=== PATIENT | female | born 1990 | race Caucasian/White ===

== ENCOUNTER 2020-01-02 09:33 | Outpatient (CLI) | payer OTHER ==
--- NOTE | 2020-01-02 11:40 | MRI ---
Exam: Brain MRI with and without contrast HISTORY: History of seizure COMPARISON: 04/30/2016, 01/01/2012 FINDINGS: Gradient echo sequence: No hemorrhage Calvarium: Appropriate T1 marrow signal intensity Midline brain parenchyma: Unremarkable Cerebrum:Redemonstration of multiple subependymal nodules. Stable T2 and FLAIR white matter hyperinte nsities. Stable pineal cyst. Currently, pineal cyst measures 0.7 x 0.6 cm, previously measuring 0.8 x 0.7 cm. Stable beata cisterna magna. There are no new intraparenchymal masses. Ventricles: Stable configuration the ventricular system. Sinuses and mastoid air cells: Adequate aeration Diffusion: Central arterial flow is maintained. Absent restricted diffusion. Postcontrast images: No pathologic enhancement of the brain parenchyma. IMPRESSION: 1. 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 2. Stable beata cisterna magna. 3. 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
== END 2020-01-02 09:34 | disposition home or self-care (01) ==
LOC: SCSMRI 09:33
PROVIDERS: ATTEND Nurse Practitioner Acute Care
DX: G40.209 Localization-related (focal) (partial) symptomatic epilepsy and epileptic syndromes with complex partial seizures, not intractable, without status epilepticus (principal)
CPT/HCPCS: 70553